=== PATIENT | female | born 2005 | race Caucasian/White ===

== ENCOUNTER 2024-04-27 08:05 | Outpatient (AMB) | payer OTHER, SELFPAY ==
--- NOTE | 2024-04-27 08:07 | A.OFFPC_ITS ---
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 Patient moved from [facility] recently where she lived for 3 years with her mother who works as a radiologist in [employer] and twin brother. Patient is concerned about her increased heart rate and low blood pressure on occasions getting lightheaded when standing up suddenly. Her mother has diagnosis of POTS disease and the patient like to be tested. She has been taking Lexapro for PMDD 2 weeks out of the month which has been helpful. 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 [employer] Surgical History [place] teeth extracted Family History Father POTS (postural orthostatic tachycardia syndrome) Sleep apnea Mother Skin cancer Social History Household Members Other:: lives with mother (radiologist in [employer], lived in [place] Housing: Other Patient Tobacco Use Status: Never used Tobacco e-Cigarette/Vaping Use: Never Used service: No Current occupational status: student Cognitive needs: No Hearing needs: No Vision needs: No Questionnaire PHQ-9 Over the last 2 weeks, how often have you been bothered by any of the following problems? 1. Little interest or pleasure in doing things: several days 2. Feeling down, depressed, or hopeless: several days 3. Trouble falling or staying asleep, or sleeping too much: several days 4. Feeling tired or having little energy: several days 5. Poor appetite or overeating: several days 6. Feeling bad about yourself - or that you are a failure or have let yourself or your family down: several days 7. Trouble concentrating on things, such as reading the newspaper or watching television: several days 8. Moving or speaking so slowly that other people could have noticed. Or the opposite - being so fidgety or restless that you have been moving around a lot more than usual: several days 9. Thoughts that you would be better off or of hurting yourself in some way: not at all Total score: 8 Depression Screening Interpretation: Negative Depression Screening Done: Yes 68241 - PHQ-9 Billing: Yes Source: Developed by Drs. Kodak Sherman, Melissa Kraus, Alejandro Crowley and colleagues, with an educational naren from [employer]. Thrive Questionnaire Date Thrive assessed: 04/27/24 I am a: Patient What is your living situation today?: I have a steady place to live Within the past 12 months, did the food you bought not last and you didn't have the money to get more?: Never true Within the past 12 months, did you worry whether your food would run out before you got money to buy more?: Never true Do you have trouble paying for medicines?: No Do you have trouble getting transportation to medical appointments?: Yes Do you have trouble paying your heating and electricity bill?: No Do you have trouble taking care of your child, family member or friend?: No Do you have trouble with day-to-day activities such as bathing, preparing meals, shopping, managing finances, etc.?: No Are you currently unemployed and looking for a job?: No Are you interested in more education?: No Please select the resources that you would like help with: None Currently or been in a relationship where the following occur: No concerns reported THRIVE Score: 1 AUDIT C Alcohol Use Questionnaire (AUDIT-C) 1. How often do you have a drink containing alcohol?: Never 3. How often do you have six or more drinks on one occasion?: Never Total Score: 0 JOSE-7 AMB Questionnaire JOSE-7 Feeling nervous, anxious, or on edge: 0 = Not at all Not being able to stop or control worryin = Not at all Worrying too much about different things: 0 = Not at all Trouble relaxin = Not at all Being so restless that it is hard to sit still: 0 = Not at all Becoming easily annoyed or irritable: 0 = Not at all Feeling afraid as if something awful might happen: 0 = Not at all Total JOSE-7 score (0-4 normal; 5-9 mild; 10-14 moderate; 15-21 severe): 0 Source: Developed by Drs. Kodak Sherman, Melissa Kraus, Alejandro Crowley and colleagues, with an educational naren from [employer]. Review of Systems Const All systems reviewed & are unremarkable except as noted in HPI and below Reports no additional complaints Eyes Reports no additional complaints ENT Reports no additional complaints Card Reports no additional complaints Resp Reports no additional complaints GI Reports no additional complaints Reports no additional complaints Physical exam (Primary Care) Vital Signs: Last Vital Signs Temp 98.4 F 04/27/24 08:09 Pulse 93 04/27/24 08:09 Resp 20 04/27/24 08:09 BP 108/70 04/27/24 08:09 Pulse Ox 98 04/27/24 08:09 Oxygen Delivery Method Room Air 04/27/24 08:09 BMI result Body Mass Index 19.7 Tobacco/Smoking Status: Tobacco use Status Tobacco use date assessed 04/27/24 04/27/24 08:20 Patient Tobacco Use Status Never used Tobacco 04/27/24 08:29 e-Cigarette/Vaping Use Never Used 04/27/24 08:29 PHQ-9: PHQ-9 Score PHQ-9: Total score 8 04/27/24 08:46 Depression Screening Interpretation: Negative Thrive Assessment: Date of Thrive Assessment Date Thrive assessed 04/27/24 04/27/24 08:10 Currently or been in a relationship where the following occur: No concerns reported Const General: no acute distress HENMT Head: Yes normal to inspection Ears: hearing grossly normal bilaterally General nose exam: Normal external nose present Face and sinus: Yes normal facial exam Mouth: Normal oral and palatal mucosa present Throat: Yes posterior oropharynx normal Eyes General: appearance normal, both eyes and all related structures Neck Neck: Yes no lymphadenopathy and Yes supple Resp Effort & Inspection: normal respiratory effort Auscultation: clear to auscultation bilaterally Cardio Rhythm: regular rhythm Heart sounds: S1 normal heart sound present and S2 normal heart sound present GI Inspection: Yes normal to inspection Palpation (GI): Soft to palpation Percussion: Yes normal to percussion Auscultation: normal bowel sounds Coding Level of Care Code New Pt Prev Care 18-39yr(79865 Diagnoses Annual physical exam Z00.00 PMDD (premenstrual dysphoric disorder) F32.81 Tachycardia R00.0 Additional Codes PHQ-9 - 59354 - PHQ-9 Billing: Yes ([id number]) Assessment & Plan Assessment & Plan (1) Annual physical exam: Code(s): Z00.00 - Encounter for general adult medical examination without abnormal findings Category: Medical Plan: Well-balanced diet regular physical activity discussed with the patient she will return for fasting blood work (2) PMDD (premenstrual dysphoric disorder): Code(s): F32.81 - Premenstrual dysphoric disorder Category: Medical Plan: Continue Lexapro (3) Tachycardia: Code(s): R00.0 - Tachycardia, unspecified Category: Medical Plan: Obtain A TILT-TABLE study to evaluate for POTS disease, patient was advised to increase fluid intake Orders: Orders Lipid Panel Today R00.0 - Tachycardia, unspecified, Z00.00 - Encounter for general adult medical examination without abnormal findings IRON PROFILE Today R00.0 - Tachycardia, unspecified, Z00.00 - Encounter for general adult medical examination without abnormal findings TSH reflex Free T4 Today R00.0 - Tachycardia, unspecified, Z00.00 - Encounter for general adult medical examination without abnormal findings UA w Microscopic Today R00.0 - Tachycardia, unspecified, Z00.00 - Encounter for general adult medical examination without abnormal findings ECG Tilt Table Test Today R00.0 - Tachycardia, unspecified, Z00.00 - Encounter for general adult medical examination without abnormal findings AMB EKG-In Office Today F32.81 - Premenstrual dysphoric disorder, R00.0 - Tachycardia, unspecified Comprehensive [place]. Panel Fast Today R00.0 - Tachycardia, unspecified, Z00.00 - Encounter for general adult medical examination without abnormal findings Complete Blood Count Auto Diff Today R00.0 - Tachycardia, unspecified, Z00.00 - Encounter for general adult medical examination without abnormal findings Medications: New escitalopram oxalate (Lexapro) 5 mg (1/2 x 10 mg) PO DAILY 90 tabs 0RF
[2024-04-27 08:09] VITALS: BP 108/70; PULSE 93; RESP 20; TEMP 36.9; O2SAT 98; BMI 19.7
== END 2024-04-27 12:33 | disposition home or self-care (01) ==
LOC: HO.HMCC 08:05
PROVIDERS: Visit Provider Internal Medicine
DX: Z00.00 Encounter for general adult medical examination without abnormal findings (principal); F32.81 Premenstrual dysphoric disorder; R00.0 Tachycardia, unspecified

== ENCOUNTER 2024-04-27 08:05 | Outpatient (REF) | payer OTHER, SELFPAY ==
--- OUTSIDE RECORDS SUMMARY | 2024-04-27 09:27 | XMS_ITS | Continuity of Care Document ---
Author Name [facility] Organization [facility] Care Team Providers Care Electrical Contacts Adjuster Name Role Phone [facility] Unavailable Unavailable Problems Combined list of problems from [facility] facilities. It does not include entries that were removed or entered in error. Problem Status Onset Date Problem Type Date of Resolution Comments Source Well adult Active 02/13/2024 Diagnosis [facility] Premenstrual dysphoric disorder Active 02/13/[address] [place] [address] Acne Active Condition [address] [place] [address] Ganglion cyst of right knee Active Condition [address] [place] [address] Premenstrual dysphoric disorder Active Condition [address] [place] [address] Sinus tachycardia Active Condition [address] [place] [address] Dizziness and giddiness Active Diagnosis [address] [place] [address] Medications Combined list of outpatient medications from [facility] facilities.Medications provided include 1) outpatient medications from the last 15 months, and 2) patient-reported medications. Medication Details Route Status Patient Instructions Prescription Expires Prescription Number Last Dispense Date Ordering Provider Order Date Order Qty Source benzoyl peroxide-cl indamycin 5%-1.2% topical gel APPLY A THIN AMOUNT TO ENTIRE FACE EVERY MORNING, # 45 g, 10 total refill(s ), Acute Discont inued 01/07/2023 3 2022 45.0 Ambulat ory Pharmac y cetirizine 10 mg oral tablet 1 tab(s), Oral, Daily, PRN allergy symptoms , # 90 tab(s), 3 total refill(s ), Maintena nce Oral (given by mouth) Ordered 2023 90.0 [facility] clindamycin phosphate-b enzoyl peroxide 1.2%-5% topical gel APPLY A THIN AMOUNT TO ENTIRE FACE EVERY MORNING, Topical, Daily, # 45 g, 10 total refill(s ), Maintena nce, Pharmacy : [facility] Topica l (on the skin) Ordered [address] [place] [address] emollients, topical cream APPLY TOPICALL Y FREQUENT LY NEEDED FOR DRY SKIN, # 453 g, 11 total refill(s ), Acute Complet ed 11/23/2022 2 2022 453.0 Ambulat ory Pharmac y ergocalcife rol 1.25 mg (50,000 intl units) oral capsule TAKE ONE CAPSULE BY MOUTH WEEKLY, # 12 EA, 3 total refill(s ), Acute Complet ed 11/24/2022 2 2022 12.0 Ambulat ory Pharmac y ferrous fumarate 324 mg (106 mg elemental iron) oral tablet 1 tab(s), Oral, Daily, # 90 tab(s), 0 total refill(s ), Maintena nce, Pharmacy : [facility] Oral (given by mouth) Complet ed 02/13/2024 [address] [place] [address] Lexapro 10 mg oral tablet 0.5 tab(s), Oral, Daily, # 90 tab(s), 3 total refill(s ), Maintena nce, Pharmacy : [facility] Oral (given by mouth) Ordered 4 [address] [place] [address] Lexapro 10 mg oral tablet 1 tab(s), Oral, Daily, # 30 tab(s), 0 total refill(s ), Maintena nce, Pharmacy : [facility] Oral (given by mouth) Discont inued 02/13/2024 [address] [place] [address] sertraline 50 mg oral tablet 1 tab(s), Oral, Daily, # 90 tab(s), 1 total refill(s ), Maintena nce, Pharmacy : [facility] Oral (given by mouth) Discont inued 08/11/2023 [address] [place] [address] sertraline 50 mg oral tablet 1 tab(s), Oral, Daily, # 90 tab(s), 0 total refill(s ), [facility], Pharmacy : [facility] Oral (given by mouth) Complet ed 02/13/2024[address] [place] [address] tretinoin 0.1% topical cream APPLY TO AFFECTED AREAS DIRECTED AT BEDTIME, # 90 g, 11 total refill(s ), Acute Discont inued 01/07/2023 3 2022 90.0 Ambulat ory Pharmac y tretinoin 0.1% topical cream APPLY TO AFFECTED AREAS DIRECTED AT BEDTIME, Topical, every day at bedtime, # 45 g, 5 total refill(s ), [facility], Pharmacy : [facility] Topica l (on the skin) Ordered 4 [address] [place] [address] Vitamin D3 25 mcg (1000 intl units) oral tablet 1 tab(s), Oral, Daily, # 90 tab(s), 3 total refill(s ), [facility], Pharmacy : [facility] Oral (given by mouth) Ordered 4 [address] [place] [address] Lizeth 3 mg-0.02 mg oral tablet 1 tab(s), Oral, Daily, # 84 tab(s), 0 total refill(s ), [facility], Pharmacy : [facility] Oral (given by mouth) Discont inued 09/07/2023 [address] [place] [address] Lizeth 3 mg-0.02 mg oral tablet 1 tab(s), Oral, Daily, # 84 tab(s), 3 total refill(s ), [facility], Pharmacy : [facility] Oral (given by mouth) Complet ed 02/13/2024 [address] [place] [address] Allergies, Adverse Reactions, Alerts Combined list of allergies from [facility] and [facility] facilities. It does not include entries that were removed or entered in error. Substance Category Reaction Severity Reaction type Status Date Reported Comments Source ibuprofen Drug allergy Edema, Rash Moderate Active 1 Ambulatory Pharmacy Immunizations Combined list of available immunizations from the [facility] facilities. Immunization Series Date Given Administered By Site Reaction Lot Number CVX Code Drug Form Grader Status Comments Source COVID-19 vaccine(Pascual vax 12y+) 2023 AKIKOSPOGGIO Shoul darryl, left (delt oid) [id number] [employer]. complet ed COVID-19 vaccine(S pikevax 12y+) 02/13/[address] [place] [address] meningococcal group B vaccine 2022 GABRIELLEFLEU RENTIN Shoul darryl, right (delt oid) [id number] GlaxoSmithKli tx complet ed meningoco ccal group B vaccine 01/24/[address] [place] [address] meningococcal B, OMV 2022 HERNANDO NOPF [id number] complet ed Result Comment: Route: Unknown Manufactu rer: OTH (SKB) [address] [place] [address] COVID-19 vaccine(Comir melania 12y+) 2022 JillianAPhill ips Shoul darryl, left (delt oid) [id number] [employer] complet ed COVID-19 vaccine(C omirnaty 12y+) 01/21/[address] [place] [address] influenza virus vaccine, inactivated 2022 JillianAPhill ips Shoul darryl, left (delt oid) [id number] 150 NEXAGE, A Versa complet ed influenza virus vaccine, inactivat ed 12/31/22 Given [facility] influenza, injectable, quadrivalent- pf 2022 HERNANDO CAMARILLO [id number] complet ed Result Comment: Route: Unknown Manufactu rer: OTH (SEQ) [facility], injectable, quadrivalent- pf 2021 zzLef t Arm [id number] 150 WhisherKli ne complet ed influenza , injectabl e, quadrival ent-pf 12/02/21 Given Ambulat ory Pharmac y COVID-19 vaccine(Pfize r Bival 12yr+) 2021 zzLef t Arm [id number] PFIZER complet ed COVID-19 vaccine(P fizer Bival 12yr+) 12/02/21 Given Ambulat ory Pharmac y COVID Vaccine Pfizer 2021 zzLef t Arm [id number] 208 PFIZER complet ed COVID Vaccine Pfizer 02/19/21 Given Ambulat ory Pharmac y influenza, injectable, quadrivalent [facility] [id number] 158 Seqirus complet ed influenza , injectabl e, quadrival ent 12/04/20 Given Ambulat ory Pharmac y meningococcal A,C,Y,W-135 (MCV4P) 2020 zzLef t Arm [id number] 114 sanofi pasteur complet ed meningoco ccal A,C,Y,W-1 35 (MCV4P) 08/19/20 Given Ambulat ory Pharmac y COVID Vaccine Pfizer 2020 zzLef t Arm [id number] 208 PFIZER complet ed COVID Vaccine Pfizer 07/24/20 Given Ambulat ory Pharmac y COVID Vaccine Pfizer 2020 zzLef t Arm [id number] 208 PFIZER complet ed COVID Vaccine Pfizer 07/03/20 Given Ambulat ory Pharmac y influenza, injectable, quadrivalent- pf 2019 zzLef t Arm [id number] 150 Seqirus complet ed influenza , injectabl e, quadrival ent-pf 12/04/19 Given Ambulat ory Pharmac y influenza, injectable, quadrivalent- pf 2018 zzLef t Arm [id number] 150 Seqirus complet ed influenza , injectabl e, quadrival ent-pf 12/26/18 Given Ambulat ory Pharmac y Slovak Encephalitis IM 2018 zzRig ht Arm [id number] 134 Valneva complet ed Slovak Encephali tis IM 11/07/18 Given Ambulat ory Pharmac y Slov[place] Encephalitis IM 2018 zzLef t Arm [id number] 134 Valneva complet ed [place] Encephali tis IM 08/24/18 Given Ambulat ory Pharmac y typhoid Vi capsular polysaccharid e vac 2018 zzLef t Arm [id number] 101 sanofi pasteur complet ed typhoid Vi capsular polysacch aride vac 08/24/18 Given Ambulat ory Pharmac y influenza, injectable, quadrivalent- pf 2017 zzLef t Arm [id number] 150 Seqirus complet ed influenza , injectabl e, quadrival ent-pf 12/27/17 Given Ambulat ory Pharmac y influenza, injectable, quadrivalent- pf 2016 zzLef t Thigh [id number] [facility] influenza , injectabl e, quadrival ent-pf 01/24/17 Given Ambulat ory Pharmac y Human Papillomaviru s 9-valent vaccine [facility] [id number] 165 Merck & Company Inc complet ed Human Papilloma virus 9-valent vaccine 07/29/16 Given Ambulat ory Pharmac y Human Papillomaviru s 9-valent vaccine 2015 zzRig ht Arm [id number] 165 Merck & Company Inc complet ed Human Papilloma virus 9-valent vaccine 11/21/15 Given Ambulat ory Pharmac y influenza, seasonal, injectable-pf 2015 zzRig ht Arm [id number] 140 Seqirus complet ed influenza , seasonal, injectabl e-pf 11/21/15 Given Ambulat ory Pharmac y tetanus, diphtheria, acellular pertu is 2015 zzRig ht Arm [id number] 115 GlaxoSmithKli ne complet ed tetanus, diphtheri a, acellular pertussis 09/19/15 Given Ambulat ory Pharmac y meningococcal A,C,Y,W-135 (MCV4P) 2015 zzLef t Arm [id number] 114 [employer] complet ed meningoco ccal A,C,Y,W-1 35 (MCV4P) 09/19/15 Given Ambulat ory Pharmac y Human Papillomaviru s 9-valent vaccine [facility] [id number] 165 Merck & Company Inc complet ed Human Papilloma virus 9-valent vaccine 09/19/15 Given Ambulat ory Pharmac y influenza, live, intranasal,qu adrivalent 2014 [id number] 149 Medimmune Inc comple t ed influenza , live, intranasa l,quadriv alent 12/27/14 Given Ambulat ory Pharmac y influenza virus vaccine, live 2010 [id number] 111 Medimmune Inc comple t ed influenza virus vaccine, live 10/30/10 Given Ambulat ory Pharmac y influenza virus vaccine, live 2009 [id number] 111 Med[employer] Inc comple t ed influenza virus vaccine, live 02/02/10 Given Ambulat ory Pharmac y influenza virus vaccine,split 2008 [facility] Arm [id number] 15 sanofi pasteur complet ed influenza virus vaccine,s plit 01/06/09 Given Ambulat ory Pharmac y [facility]P [facility] [id number] 20 GlaxoSmithKli ne complet ed DTaP 05/28/08 Given Ambulat ory Pharmac y measles/mumps /rubella virus vaccine 2008 [facility] [id number] 03 Merck & Company Inc complet ed measles/m umps/rube lla virus vaccine 05/28/08 Given Ambulat ory Pharmac y varicella virus vaccine 2008 [facility] [id number] 21 Merck & Company Inc complet ed varicella virus vaccine 05/28/08 Given Ambulat ory Pharmac y poliovirus vaccine, inactivated 2008 [facility] Thigh [id number] 10 sanofi pasteur complet ed polioviru s vaccine, inactivat ed 05/28/08 Given Ambulat ory Pharmac y influenza virus vaccine,split 2007 [facility] Thigh [id number] 15 sanofi pasteur complet ed influenza virus vaccine,s plit 01/29/08 Given Ambulat ory Pharmac y Hep A, pediatric, unspecified formul 2007 [facility] [id number] 31 GlaxoSmithKli ne complet ed Hep A, pediatric , unspecifi ed formul 06/12/07 Given Ambulat ory Pharmac y influenza virus vaccine,split 2006 zzLef t Arm [id number] 15 sanofi pasteur complet ed influenza virus vaccine,s plit 12/08/06 Given Ambulat ory Pharmac y Hep A, pediatric, unspecified formul 2006 zzLef t Arm [id number] 31 GlaxoSmithKli ne complet ed Hep A, pediatric , unspecifi ed formul 12/08/06 Given Ambulat ory Pharmac y influenza virus vaccine,split 2006 zzLef t Arm [id number] 15 sanofi pasteur complet ed influenza virus vaccine,s plit 03/28/06 Given Ambulat ory Pharmac y pneumococcal 7-valent vaccine 2005 zzLef t Thigh [id number] 100 Me[employer] / [employer] complet ed pneumococ laverne 7-valent vaccine 09/03/05 Given Ambulat ory Pharmac y DTaP 2005 zzLef t Thigh [id number] 20 GlaxoSmithKli ne complet ed DTaP 09/03/05 Given Ambulat ory Pharmac y measles/mumps /rubella virus vaccine 2005 zRig Thigh [id number] 03 Merck & Company Inc complet ed measles/m umps/rube lla virus vaccine 09/03/05 Given Ambulat ory Pharmac y haemophilus b conj (PRP-OMP) vaccine 2005 zzRig ht Thigh [id number] 49 Merck & Company Inc complet ed haemophil us b conj (PRP-OMP) vaccine 06/01/05 Given Ambulat ory Pharmac y varicella virus vaccine 2005 zzLef t Arm [id number] 21 Merck & Company Inc complet ed varicella virus vaccine 06/01/05 Given Ambulat ory Pharmac y influenza virus vaccine, whole virus 2004 [id number] 16 sanofi pasteur complet ed influenza virus vaccine, whole virus 01/28/05 Given Ambulat ory Pharmac y influenza virus vaccine, whole virus 2004 [id number] 16 sanofi pasteur complet ed influenza virus vaccine, whole virus 04 Given Ambulat ory Pharmac y DTaP-hepatiti s B and poliovirus vaccine 2004 [facility] [id number] 110 GlaxoSmithKli ne complet ed DTaP-hepa titis B and polioviru s vaccine 04 Given Ambulat ory Pharmac y pneumococcal 7-valent vaccine 2004 [facility] Thigh [id number] 100 [place] [facility] complet ed pneumococ laverne 7-valent vaccine 04 Given Ambulat ory Pharmac y haemophilus b conj (PRP-OMP) vaccine [facility] [id number] 49 [employer] & [employer] Inc complet ed haemophil us b conj (PRP-OMP) vaccine 04 Given Ambulat ory Pharmac y DTaP-hepatiti s B and poliovirus vaccine [facility] [id number] 110 GlaxoSmithKli ne complet ed DTaP-hepa titis B and polioviru s vaccine 04 Given Ambulat ory Pharmac y pneumococcal 7-valent vaccine [facility] [id number] 100 [place] [facility] complet ed pneumococ laverne 7-valent vaccine 04 Given Ambulat ory Pharmac y DTaP-hepatiti s B and poliovirus vaccine 2004 [facility] [id number] 110 GlaxoSmithKli ne complet ed DTaP-hepa titis B and polioviru s vaccine 04 Given Ambulat ory Pharmac y haemophilus b conj (PRP-OMP) vaccine [facility] Thigh [id number] 49 Mer[employer] Inc complet ed haemophil us b conj (PRP-OMP) vaccine 04 Given Ambulat ory Pharmac y pneumococcal 7-valent vaccine [facility] [id number] 100 [facility] complet ed pneumococ laverne 7-valent vaccine 04 Given Ambulat ory Pharmac y Results Combined list of recent chemistry, hematology and other laboratory results from Department of Defense and Veterans Affairs, ranging from 15 months to all on record, depending upon the facility. Order Name Results Value Reference Range Date Interpretation Specimen Comments Source Chemistr y TSH 2.07 uIU/mL 0.36 - 3.72 09/22 N [facility] Chemistr y Hemoglobin A1c 4.7 % 09/22 N Interpretiv e Data: ADA Classificat ion and Diagnosis of Diabetes Non-diabeti c < 5.7% Pre-Diabeti c 5.7 - 6.4% Diabetics > 6.5% Testing performed at [facility] ([facility]. Hemoglobin A1c criteria for diagnosing diabetes have not been established for patients who are <18 years of age. Hemoglobin A1c should be interpreted with caution in patients with anemia, hemoglobino pathies, or renal failure. [address] [place] [address] Chemistr y Folate Lvl 13.2 mg/mL 5.9 - 22.3 09/[address] [place] [address] Chemistr y Vitamin B12 199 pg/mL 145 - 670 09/[address] [place] [address] Hematolo gy Baso Absolute 0.0 x10^3/mc L 0.0 - 0.1103 09/[address] [place] [address] Hematolo gy Eos Absolute 0.6 x10^3/mc L 0.0 - 0.6103 09/[address] [place] [address] Hematolo gy Monocyte % Auto 8.2 % 09/[address] [place] [address] Hematolo gy Neutrophil % Auto 44.7 % 09/[address] [place] [address] Hematolo gy Lymphocyte % Auto 35.2 % 09/[address] [place] [address] Hematolo gy [place] Absolute 0.4 x10^3/mc L 0.2 - 0.8103 09/[address] [place] [address] Hematolo gy Neutro Absolute 2.3 x10^3/mc L 1.8 - 8.0103 09/[address] [place] [address] Hematolo gy Lymph Absolute 1.8 x10^3/mc L 1.2 - 5.2103 09/[address] [place] [address] Hematolo gy Eosinophil % Auto 11.1 % 09/[address] [place] [address] Hematolo gy Basophil % Auto 0.8 % 09/[address] [place] [address] Chemistr y eGFR CKD EPI 128 mL/min/1 .73m^2 09/22 Interpretiv e Data: Estimated Glomerular Filtration Rate (eGFR) calculated using the 2020 Chronic Kidney Disease-Epi demiology (CKD-EPI) Collaborati on creatinine equation; units of measure are mL/min/1.73 m2. Results are only valid for adults (e18 years) whose serum creatinine is in steady state.? eGFR calculation s are not valid for patients with acute kidney injury and for patients on dialysis. ?Creatinine -based estimates of kidney function may also be inaccurate in patients with reduced creatinine generation due to decreased muscle mass (e.g., malnutritio n, severe hypoalbumin emia, sarcopenia, chronic neuromuscul ar disease, amputations , severe heart failure or liver disease) and in patients with increased creatinine generation due to increased muscle mass (e.g., muscle builders, anabolic steroids) or increased dietary intake. As drug clearance is proportiona l to total GFR and not GFR indexed to body surface area (BSA), in individuals with a BSA substantial ly different than 1.73 m2, drug dosing should be based the reported eGFRvalue de-indexed from BSA by multiplying by the individual s BSA and dividing by 1.73. CKD is diagnosed based on abnormaliti es of kidney structure or function, present for >3 months, with implication s for health and disease. CKD is classified and staged based on cause, eGFR and albuminuria (quantified as urine albumin to creatinine ratio). An eGFR >60 mL/min/1.73 m2 in the absence of increased urine albumin excretion or structural abnormaliti es does not represent CKD.eGFR (mL/min/1.7 3 m2) CKD stage Interpretat ion e90 G1 Normal 60-89 G2 Mild decrease 45-59 G3A Mild to moderate decrease 30-44 G3B Moderate to severe decrease 15-29 G4 Severe decrease <15 G5 Kidney failure [address] [place] [address] Chemistr y Potassium Lvl 4.8 mmol/L 3.6 - 5.1 09/[address] [place] [address] Chemistr y Chloride 106 mmol/L 101 - 111 09/[address] [place] [address] Chemistr y CO2 29 mmol/L 22 - 32 09/[address] [place] [address] Chemistr y Creatinine Level 0.7 mg/dL 0.6 - 1.5 09/[address] [place] [address] Chemistr y BUN 9 mg/dL 8 - 20 09/[address] [place] [address] Chemistr y Sodium 140 mmol/L 135 - 145 09/[address] [place] [address] Chemistr y BUN/Creat Ratio 13 09/[address] [place] [address] Chemistr y ALT 16.3 U/L 10.9 - 55.8 09/[address] [place] [address] Chemistr y AST 20.5 U/L 14.8 - 44.7 09/[address] [place] [address] Chemistr y Bilirubin Total 0.3 mg/dL 0.3 - 1.2 09/[address] [place] [address] Chemistr y Calcium 10.1 mg/dL 8.9 - 10.3 09/[address] [place] [address] Chemistr y Albumin 4.3 g/dL 3.7 - 5.0 09/[address] [place] [address] Chemistr y Protein Total 7.5 g/dL 6.4 - 8.3 09/[address] [place] [address] Chemistr y A/G Ratio 1.3 09/[address] [place] [address] Chemistr y Alk Phos 44 U/L 47 - 157 09/[address] [place] [address] Chemistr y Glucose Lvl 89 mg/dL 74 - 118 09/[address] [place] [address] Hematolo gy Hematocrit 40.3 % 34.0 - 47.0 09/[address] [place] [address] Hematolo gy MCV 95.5 fL 80.0 - 95.0 08/09 /[address] [place] [address] Hematolo gy RBC 4.22 x10^6/mc L 3.70 - 5.72358 09/[address] [place] [address] Hematolo gy Hemoglobin 13.4 g/dL 11.0 - 16.0 09/[address] [place] [address] Hematolo gy WBC 5.1 x10^3/mc L 3.5 - 10.5103 09/[address] [place] [address] Hematolo gy Platelets 239 x10^3/mc L 151 - 536010 09/[address] [place] [address] Hematolo gy MPV 10.5 fL 7.5 - 12.3 09/[address] [place] [address] Hematolo gy MCHC 33.3 g/dL 31.0 - 35.0 09/[address] [place] [address] Hematolo gy RDW CV 11.8 % 12.6 - 15.9 09/[address] [place] [address] Hematolo gy MCH 31.8 pg 26.0 - 33.0 09/[address] [place] [address] Chemistr y Ferritin Lvl 23.2 ng/mL 24.4 - 281.8 09/[address] [place] [address] Chemistr y TIBC 377 ug/dL 250 - 450 09/[address] [place] [address] Chemistr y UIBC, 283 ug/dL 155 - 355 09/[address] [place] [address] Chemistr y Iron 94.0 ug/dL 17.3 - 170.0 09/[address] [place] [address] Chemistr y Transferri n 277 mg/dL 176 - 350 09/[address] [place] [address] Chemistr y Iron % Sat 25 % 15 - 50 09/[address] [place] [address] Chemistr y TSH 1.71 uIU/mL 0.36 - 3.72 08/[address] [place] [address] Chemistr y Vitamin D 25 OH 31 ng/mL 30 - 100 07/12 N Interpretiv e Data: Interpretat ion: <20 ng/mL Deficient 20-30 ng/mL Insufficien cy 30-100 ng/mL Sufficiency >100 ng/mL Toxicity [address] [place] [address] Chemistr y UIBC, 224 ug/dL 155 - 355 07/[address] [place] [address] Chemistr y TIBC 329 ug/dL 250 - 450 07/[address] [place] [address] Chemistr y Iron % Sat 32 % 15 - 50 07/[address] [place] [address] Chemistr y Iron 105.0 ug/dL 17.3 - 170.0 07/[address] [place] [address] Chemistr y Ferritin Lvl 11.0 ng/mL 24.4 - 281.8 07/[address] [place] [address] Chemistr y Transferri n 228 mg/dL 176 - 350 07/[address] [place] [address] Hematolo gy Eosinophil % Auto 1.8 % 01/[address] [place] [address] Hematolo gy Monocyte % Auto 8.7 % 01/[address] [place] [address] Hematolo gy Lymphocyte % Auto 38.3 % 01/[address] [place] [address] Hematolo gy Neutrophil % Auto 50.9 % 01/[address] [place] [address] Hematolo gy Basophil % Auto 0.3 % 01/[address] [place] [address] Hematolo gy Baso Absolute 0.0 x10^3/mc L 0.0 - 0.1103 01/[address] [place] [address] Hematolo gy Eos Absolute 0.1 x10^3/mc L 0.0 - 0.6103 01/[address] [place] [address] Hematolo gy [place] Absolute 0.5 x10^3/mc L 0.2 - 0.8103 01/[address] [place] [address] Hematolo gy Lymph Absolute 2.4 x10^3/mc L 1.2 - 5.2103 01/[address] [place] [address] Hematolo gy Neutro Absolute 3.1 x10^3/mc L 1.8 - 8.0103 01/[address] [place] [address] Immunolo gy/Serol ogy QFT Incubation LC Incubati on performe d. 01/10 Result Comment: Performed At: [address] [place] [address] [id number] Fede Wang MD Ph:[phone] [address] [place] [address] Immunolo gy/Serol ogy QFT-TB Gold Plus LC Negative 01/10 Result Comment: No response to M tuberculosi s antigens detected. Infection with M tuberculosi s is unlikely, but high risk individuals should be considered for additional testing (ATS/IDSA/C DC Clinical Practice Guidelines, 2017). The reference range is an Antigen minus Nil result of <0.35 IU/mL. Chemilumine scence immunoassay methodology Performed At: [address] [place] [address] [id number] Fede Wang MD Ph:[phone] [address] [place] [address] Hematolo gy Sickle Cell Screen Negative 4 ( 3 3:05 PM) 01/10 N Interpretiv e Data: Elevated levels of hemoglobin F can cause false negative results. Do not use this test for infants under 6 months of age. This is a screening test. Samples with positive screening results will automatical ly be sent to a reference laboratory for confirmatio n. [address] [place] [address] Immunolo gy/Serol ogy Hep C Ab Negative 2 ( 3 3:05 PM) 01/10 N Interpretiv e Data: NEGATIVE - Antibodies to HCV were not detected; does not exclude the possibility of exposure to HCV. PRESUMPTIVE POSITIVE - Presumptive evidence of antibodies to HCV. Follow CDC recommendat ions for supplementa l testing. Refer to updated guidance Testing HCV Infection: An Update of Guidance for Clinicians and Laboratoria ns for additional information and recommended HCV testing algorithm (Centers for Disease Control and Prevention, MMWR Early Release / Vol. 62 / June 20, 2012). Notifiable result/cond ition for Local/State PH department, notify your local public health immediately for proper notificatio n. Testing performed by mayo jose ce. [id number] FSAM EPILAB Hematolo gy MPV 10.0 fL 7.5 - 12.3 01/[address] [place] [address] Hematolo gy WBC 6.2 x10^3/mc L 3.5 - 10.5103 01/[address] [place] [address] Hematolo gy RBC 4.25 x10^6/mc L 3.70 - 5.94476 01/[address] Hematolo gy Hematocrit 39.4 % 34.0 - 47.0 01/[address] [place] [address] Hematolo gy Hemoglobin 13.4 g/dL 11.0 - 16.0 01/[address] Hematolo gy RDW CV 11.7 % 12.6 - 15.9 01/[address] [place] [address] Hematolo gy MCHC 34.0 g/dL 31.0 - 35.0 01/[address] [place] [address] Hematolo gy MCH 31.5 pg 26.0 - 33.0 01/[address] [place] [address] Hematolo gy MCV 92.7 fL 80.0 - 95.0 01/[address] Hematolo gy Platelets 237 x10^3/mc L 151 - [id number] 01/[address] Immunolo gy/Serol ogy QFT Nil Value LC 0.02 IU/mL 01/10 [facility] Standard Immunolo gy/Serol ogy QFT TB2 Ag Value LC 0.04 IU/mL 01/10 [facility] Standard Immunolo gy/Serol ogy QFT Mitogen Value LC >10.00 IU/mL 01/10 Result Comment: Performed At: [address] [id number] Fede Wang MD Ph:[phone] [facility] Standard Immunolo gy/Serol ogy QFT TB1 Ag Value LC 0.02 IU/mL 01/10 [facility] Standard Immunolo gy/Serol ogy QFT Criteria LC COMMENT 01/10 Result Comment: QuantiFERON -TB Gold Plus is a qualitative indirect test for M tuberculosi s infection (including disease) and is intended for use in conjunction with risk assessment, radiography , and other medical and diagnostic evaluations . The QuantiFERON -TB Gold Plus result is determined by subtracting the Nil value from either TB antigen (Ag) value. The Mitogen tube serves as a control for the test. [facility] Standard Vital Signs Combined list of inpatient and outpatient Vital Signs from Department of Defense and Veterans Affairs, ranging from 12 months to all on record, depending upon the facility. Vital Sign Value Date Comments Source Peripheral Pulse Rate 48 bpm 02/23/2023 12:57:[address] [place] [address] Mean Arterial Pressure, Calc 90 mm[Hg] 02/23/2023 12:57:[address] [place] [address] Respiratory Rate 16 br/min 02/23/2023 12:57:[address] [place] [address] BP Site Left arm 02/23/2023 12:57:[address] [place] [address] Temperature Oral 36.6 Lorraine 02/23/2023 12:57:[address] [place] [address] Blood Pressure Manual Automatic 02/23/2023 12:57:[address] [place] [address] Systolic Blood Pressure 112 mm[Hg] 02/23/19 24 12:57:[address] [place] [address] Diastolic Blood Pressure 79 mm[Hg] 024 12:57:[address] [place] [address] Mean Arterial Pressure, Calc 85 mm[Hg] 07/13/2023 12:02:[address] [place] [address] Systolic Blood Pressure 108 mm[Hg] 07/13/19 12:02:[address] [place] [address] Diastolic Blood Pressure 74 mm[Hg] 024 12:02:[address] [place] [address] Temperature Oral 37.1 Lorraine 07/13/2023 12:02:[address] [place] [address] BP Site Left arm 07/13/2023 12:02:[address] [place] [address] Blood Pressure Manual Automatic 07/13/2023 12:02:[address] [place] [address] Peripheral Pulse Rate 80 bpm 07/13/2023 12:02:[address] [place] [address] Respiratory Rate 16 br/min 07/13/2023 12:02:[address] [place] [address] Peripheral Pulse Rate 73 bpm 02/13/2024 09:29:[address] [place] [address] Respiratory Rate 18 br/min 02/13/2024 09:29:[address] [place] [address] Mean Arterial Pressure, Calc 81 mm[Hg] 02/13/2024 09:29:[address] [place] [address] Temperature Oral 36.8 Lorraine 02/13/2024 09:29:[address] [place] [address] BP Site Left arm 02/13/2024 09:29:[address] [place] [address] Blood Pressure Manual Automatic 02/13/2024 09:29:[address] [place] [address] Systolic Blood Pressure 104 mm[Hg] 02/13/20 09:29:[address] [place] [address] Diastolic Blood Pressure 69 mm[Hg] 024 09:29:[address] [place] [address] Systolic Blood Pressure Standing 108 mm[Hg] 09/23/2023 10:47:[address] [place] [address] Diastolic Blood Pressure Standing 77 mm[Hg] 09/23/2023 10:47:[address] [place] [address] Systolic Blood Pressure Supine 111 mm[Hg] 09/23/2023 10:47:[address] [place] [address] Diastolic Blood Pressure Supine 71 mm[Hg] 09/23/2023 10:47:[address] [place] [address] BP Site Left arm 01/07/2023 12:30:[address] [place] [address] Blood Pressure Manual Automatic 01/07/2023 12:30:[address] [place] [address] Mean Arterial Pressure, Calc 83 mm[Hg] 01/07/2023 12:30:[address] [place] [address] Peripheral Pulse Rate 65 bpm 01/07/2023 12:30:[address] [place] [address] Respiratory Rate 16 br/min 01/07/2023 12:30:[address] [place] [address] Temperature Oral 37 Lorraine 01/07/2023 12:30:[address] [place] [address] Systolic Blood Pressure 107 mm[Hg] 01/08/20 12:30:[address] [place] [address] Diastolic Blood Pressure 71 mm[Hg] 023 12:30:[address] [place] [address] Systolic Blood Pressure 101 mm[Hg] 08/11/19 24 08:57:[address] [place] [address] Diastolic Blood Pressure 71 mm[Hg] 024 08:57:[address] [place] [address] Respiratory Rate 13 br/min 08/11/2023 08:57:[address] [place] [address] Mean Arterial Pressure, Calc 81 mm[Hg] 08/11/2023 08:57:[address] [place] [address] Peripheral Pulse Rate 93 bpm 08/11/2023 08:57:[address] [place] [address] Temperature Oral 36.8 Lorraine 08/11/2023 08:57:[address] [place] [address] BP Site Left arm 08/11/2023 08:57:[address] [place] [address] Blood Pressure Manual Automatic 08/11/2023 08:57:[address] [place] [address] Mean Arterial Pressure, Calc 74 mm[Hg] 09/23/2023 06:28:[address] [place] [address] Systolic Blood Pressure 97 mm[Hg] 09/23/19 24 06:28:[address] [place] [address] Diastolic Blood Pressure 63 mm[Hg] 024 06:28:[address] [place] [address] Peripheral Pulse Rate 92 bpm 09/23/2023 06:28:[address] [place] [address] Respiratory Rate 17 br/min 09/23/2023 06:28:[address] [place] [address] BP Site Left arm 09/23/2023 06:28:[address] [place] [address] Temperature Oral 36.8 Lorraine 09/23/2023 06:28:[address] [place] [address] Blood Pressure Manual Automatic 09/23/2023 06:28:[address] [place] [address] Encounters Combined list of: 1) Encounters from Department of Veterans Affairs facilities going backup to the last 18 months, not all VA inpatient encounters are included; 2) Encounters from the Department of Defense facilities going backup to 280 months. Location Location Details Encounter Type Encounter Number Reason For Visit Attending Provider ADM Date DC Date Status Disposition Source [address] [place] [address] Between Visit [id number] 09/19 Discharge Disposition: Home or Self Care [address] [place] [address] Clinic [id number] Dizzine ss and giddine ss AVANI FINNEY 09/22 Discharge Disposition: Home or Self Care [address] [place] [address] Outpatient [id number] AVANI FINNEY 09/22 Discharge Disposition: Home or Self Care [address] [facility] [id number] Premens trual dysphor ic disorde r,Encou nter for general adult medical examina tion without abnorma l finding s VIVIENNE WILKINS 02/12 Discharge Disposition: Home or Self Care [address] [place] [address] Clinic [id number] EBONI FRANCES 02/12 Discharge Disposition: Home or Self Care [address] [place] [address] Procedures Combined list of: 1) Procedures from [facility] facilities going back up to thelast 18 months, not all VA non-surgical procedures are included; 2) All procedures from the Department [facility] facilities. Procedure Procedure Type Code Date Perfomer Comments [facility] [place] tooth Structure of wisdom tooth (body structure) 10561523 [address] [place] [address] [place] hemangioma of skin [place] nevus of skin (disorder) 10709945 3 Right side of face [address] [place] [address] Social History Combined list of available smoking, tobacco, and other social history from Department [facility] and [facility] facilities. Social History Type Response Date Comment Romelia e Sex Representation Female 05/27/2022 Unknow n Organization Tobacco Never-cigarette user Cigarette use:. Never-other tobacco user (not cigarettes) Other Tobacco use:. Ambulatory Pharmacy Sexual Orientation Ambula tory Pharmacy Gender identity Ambulator y Pharmacy Assessment and Plan Combined list of future care activities from Department [facility] and [facility] facilities (e.g., assessment and plan notes, appointments, orders, and referrals). Additional future care activities may be listed in the Plan of Care section. Result Assessment and Plan Date Source Assessment and Plan Extracted from:Title : [facility] pmdd, wellness Author: VIVIENNE NGUYỄN NP Date: 02/13/24 1.?Well adult ?No acute complaints other than pmdd?worse of late.? 2.?Premenstrual dysphoric disorder ?Requests refill of lexapro,?also disability sheet due to the fact she finds it debilitating when she has a flare up which might impact timeliness of assignments, participation?or attendance.? Signed, and provided to her. Meds are refilled.?? Orders: escitalopram(Lexapro 10 mg oral tablet), 0.5 tab(s), Oral, Daily, # 90 tab(s), 3 total refill(s), Maintenance, 0.5 tab(s) Oral Daily, Pharmacy: [facility] [Federal Rx: #45 last filled 02/13/24] cholecalciferol(Vitamin D3 25 mcg (1000 intl units) oral tablet), 1 tab(s), Oral, Daily, # 90 tab(s), 3 total refill(s), Maintenance, 1 tab(s) Oral Daily, Pharmacy: [facility] [Federal Rx: #90 last filled 02/13/24] MARIO Lopez, [facility] Family Health Nurse Practitioner [facility] ? ? I?have personally reviewed labs and xrays pertinent to encounter ? Diagnosis, Medication(s)/Treatment(s), Alternatives, Potential Side Effects discussed with Patient who indicated understanding with shared decision making. - Comments: Resources to review written and verbal instruction was discussed and provided at the time patient was released from the clinic. Patient/family member stated understanding of instruction. ? ? Discussed with patient that should symptoms worsen or change in concerning way patient should follow-up as soon as possible or seek emergent care.??Patient can review lab work on [facility] portal.??Patient is aware that I will only call with critical labs and it is patient?s responsibility to follow up on lab work or radiology done today at next appointment. Patient can call and set up appointment or telephone consult to discuss concerning lab work. Patient also aware the summary/note of this encounter and medication list with instructions is available on the [employer] portal.? ? Date of Service was:?02/13/24 10:08:02?Date service was documented:?02/13/2024 Extracted from:Title: [facility] RX REFILL Author: AVANI MOE NP Date: 09/23/23 1.?Premenstrual dysphoric disorder Requesting Rx refill on control, informed pt she has 3 remaining refills. Requesting Iron studies ? Mother at bedside, very assertive of patients complaints, answering for patient. Mother of patient informed staff prior to completing orthostatic VS?how they need to be completed.? ? ? Ordered: CV Electrocardiogram Anemia Profile CBC w/ Diff Comprehensive Metabolic Panel Hemoglobin A1c Thyroid Stimulating Hormone with reflex Free T4 Vitamin B12 and Folate Panel ? Orders: CV Holter Monitor *Differential Automated *Glomerular Filtration Rate, Estimated Medication Reconciliation was completed. ? A total of 15 minutes spent on day of encounter reviewing medical history/labs/radiology studies, providing/coordinating?care and documenting clinical information.? Avani Moe, MARIO?CPT Family Nurse Practitioner [facility] ? ? I have personally reviewed labs and imaging pertinent to encounter ? Diagnosis, Medication(s)/Treatment(s), Alternatives, Potential Side Effects discussed with Patient who indicated understanding. - Comments: Written and verbal instruction was discussed and provided at the time patient was released from the clinic. Patient/family member stated understanding of instruction ? Discussed with patient that should symptoms worsen or change in concerning way patient should follow-up as soon as possible or seek emergent care.??Patient can review lab work on [facility] portal.??Patient is aware that I will only call with critical labs and it is patient?s responsibility to follow up on lab work or radiology done today at next appointment. Patient can call and set up appointment or telephone consult to discuss concerning lab work. ? Patient was an active participant in their care and participated in shared decision making. Patient?was instructed to go on [facility] patient portal to view today s encounter for plan of care.? ? Date of Service was:? ? ?09/23/23 08:07:56?Date service was documented:?09/23/2023 ? Extracted from:Title: [facility] PMDD Author: YUDY LOMAS MD Date: 08/11/23 1.?Premenstrual dysphoric disorder Recommend she continue with zoloft 100mg for a few weeks to see if helps. I informed pt that I am PCSing so will not be able to see her again. Mom requesting a different SSRI to try if zoloft not working, prior to going back to school. Although this is not my normal practice, I agreed to predating a script for lexapro 10#30 for 08/28 for them to try if they are still unsatisfied with the response she gets with zoloft. I will be available for another week after that should any questions arise. We discussed the transition of zoloft 100mg to lexapro 10mg. She will pursue counseling on line or at school. Mom requesting TSH Ordered: sertraline(sertraline 50 mg oral tablet), 1 tab(s), Oral, Daily, # 90 tab(s), 0 total refill(s), Maintenance, 1 tab(s) Oral Daily, Pharmacy: [facility] [Not filled] Thyroid Stimulating Hormone ? 2.?Tachycardia Mom with POTS and asking about Cardiology evaluation . Advised as Dr Petersen is leaving , Cardiology is understaffed so pt and mom agreed they will pursue this in the [place]. Patient had a complete work up in ?[place] which was all negative and expensive. ? 3.?Acne Pretty well controlled with retin a and benzoclin combo. Recently added Lizeth and recommend giving that time to work prior to initiating any changes ? Orders: escitalopram(Lexapro 10 mg oral tablet), 1 tab(s), Oral, Daily, # 30 tab(s), 0 total refill(s), Maintenance, 1 tab(s) Oral Daily, Pharmacy: [facility] [Not filled] Yudy Lomas MD Family Medicine Clinic [facility] ? I have personally reviewed labs and xrays pertinent to encounter ? Diagnosis, Medication(s)/Treatment(s), Alternatives, Potential Side Effects discussed with Patient who indicated understanding. - Comments: Written and verbal instruction was discussed and provided at the time patient was released from the clinic. Patient/family member stated understanding of instruction ? ? Discussed with patient that should symptoms worsen or change in concerning way patient should follow-up as soon as possible or seek emergent care.? Patient can review lab work on [facility] portal.? ?Patient is aware that I will only call with critical labs and it is patient's responsibility to follow up on lab work or radiology done today at next appointment. Patient can call and set up appointment or telephone consult to discuss concerning lab work. ? Date of Service was:?08/11/23 10:39:06 ? Date service was documented:?08/11/2023 ? Extracted from:Title: [facility] PMDD Author: YUDY LOMAS MD Date: 07/13/23 1.?Premenstrual dysphoric disorder patient and mom would llike to try lizeth while she is home for the summer . Discussed the risks, benefits and side effects of medication . Has been using 25 vs 50mg of zoloft and recommended trial of continuous therapy rather than cyclic treatment. They would like to try one medication at a time and favor the lizeth over the zoloft for the summer Orders: drospirenone-ethinyl estradiol(Lizeth 3 mg-0.02 mg oral tablet), 1 tab(s), Oral, Daily, # 84 tab(s), 0 total refill(s), Maintenance, 1 tab(s) Oral Daily, Pharmacy: [facility] [Not filled] Anemia Profile Vitamin D 25 Hydroxy Level Yudy Lomas MD Family Medicine Clinic [facility] ? I have personally reviewed labs and xrays pertinent to encounter ? Diagnosis, Medication(s)/Treatment(s), Alternatives, Potential Side Effects discussed with Patient who indicated understanding. - Comments: Written and verbal instruction was discussed and provided at the time patient was released from the clinic. Patient/family member stated understanding of instruction ? ? Discussed with patient that should symptoms worsen or change in concerning way patient should follow-up as soon as possible or seek emergent care.? Patient can review lab work on [facility] portal.? ?Patient is aware that I will only call with critical labs and it is patient's responsibility to follow up on lab work or radiology done today at next appointment. Patient can call and set up appointment or telephone consult to discuss concerning lab work. ? Date of Service was:?07/13/23 13:21:06 ? Date service was documented:?07/13/2023 ? Extracted from:Title: [id number] Author: MERVIN HOANG NP Date: 02/23/23 1.?Premenstrual dysphoric disorder Will start SSRI, Discussed with pt. that?SSRI, which can be given continuously, during the luteal phase only, or as a symptom-onset regimen.? Will start with zoloft Pt. to do lifestyle modifications with exercise and stress reduction follow up in 2-3 months to evaluate effectiveness of medication ? Ordered: sertraline(sertraline 50 mg oral tablet), 1 tab(s), Oral, Daily, # 90 tab(s), 1 total refill(s), Maintenance, 1 tab(s) Oral Daily, Pharmacy: [facility] [Federal Rx: #90 last filled 02/23/23] Clinic Follow Up - Primary Care ? Mervin Hoang DNP, DIRECTOR BLOOD BANK- Family Medicine Clinic [facility] ? ? ? A total of 20 minutes? spent on day of encounter reviewing medical history/labs/studies, providing/coordinating care and documenting clinical information ? Medication reconciliation completed Advance directives discussed reviewed BMI ? ? Diagnosis, Medication(s)/Treatment(s), Alternatives, Potential Side Effects discussed with Patient who indicated understanding. - Comments: Written and verbal instruction was discussed and provided at the time patient was released from the clinic. Patient/family member stated understanding of instruction ? ? Discussed with patient that should symptoms worsen or change in concerning way patient should follow-up as soon as possible or ? call nurse advice line or?seek emergent care.? Extracted from:Title: [facility], [facility], [facility], College exam-initial visit Author: SHEY HOUSER MD Date: 01/07/23 1.?Well female adult ?-Wellness issues reviewed; may register prn at [facility] or [facility]. Screened record to ensure immunizations are up to date.?? Ordered: CBC w/ Diff Hepatitis C Antibody QuantiFERON-TB Gold Plus [id number] Sickle Cell Screen ? 2.?Acne stable on Rx Ordered: clindamycin-benzoyl peroxide topical(clindamycin phosphate-benzoyl peroxide 1.2%-5% topical gel), APPLY A THIN AMOUNT TO ENTIRE FACE EVERY MORNING, Topical, Daily, # 45 g, 10 total refill(s), Maintenance, APPLY A THIN AMOUNT TO ENTIRE FACE EVERY MORNING Topical Daily, Pharmacy: [facility] [Not filled] ? 3.?Premenstrual dysphoric disorder Discussed; she feels in better control now and declines tx for now ? Orders: tretinoin topical(tretinoin 0.1% topical cream), APPLY TO AFFECTED AREAS DIRECTED AT BEDTIME, Topical, every day at bedtime, # 45 g, 5 total refill(s), Maintenance, APPLY TO AFFECTED AREAS DIRECTED AT BEDTIME Topical every day at bedtime, Pharmacy: [facility] [Not filled] Regarding any tests performed (labs, xrays, etc), the patient is instructed to contact us if they have not heard from us within?2 weeks of completion. ? Shey Houser MD Family Practice Clinic [facility] ? ? ? Extracted from:Title: [facility] Therapist OP Initial Visit Note Author: JAIME CASTILLO, [employer] Date: 11/18/22 Pt does not fit criteria for a diagnosis at this time. No future appointments where scheduled as pt does not meet criteria for a diagnosis at this time or continued care. Good None given due to no continued care 04/27/[address] [place] [address] Functional Status Combined list of recent functional and cognitive assessments recorded at Department of Defense and Veterans Affairs (VA).VA Functional [place] Measurement (FIM) Scale: 1 = Total Assistance (Subject = 0% +), 2 = Maximal Assistance (Subject = 25% +), 3 = Moderate Assistance (Subject = 50% +), 4 = Minimal Assistance (Subject = 75% +), 5 = Supervision, 6 = Modified [place] (Device), 7 = Complete [place] (Timely, Safely). Assessment Date/Time Source Assessment Type Assessment Skill Assessment Score Assessment Details No data available for this section
[2024-04-27 10:01] LABS: MANUAL DIFF FLAG NO
[2024-04-27 10:07] LABS: Basophils Percent Auto 0.5 % (0-2); Eosinophils Absolute Auto 0.2 X10*3/uL (0.0-0.4); Eosinophils Percent Auto 4.1 % (0-4); Hematocrit 39.2 % (37.0-47.0); Hemoglobin 13.2 g/dl (12.0-16.0); Lymphocytes Absolute Auto 1.6 X10*3/uL (1.2-4.9); Lymphocytes Percent Auto 37.3 % (20-40); Mean Corpuscular HGB Conc 33.7 g/dl (31.0-35.0); Mean Corpuscular Hemoglobin 31.5 pg (27.0-33.0); Mean Corpuscular Volume 93.6 fL (80.0-98.0); Mean Platelet Volume 10.2 fL (9.4-12.3); Monocytes Absolute Auto 0.4 X10*3/uL (0.1-1.2); Monocytes Percent Auto 9.6 % (2-11); Neutrophils Absolute Auto 2.1 x10*3/uL (2.0-8.3); Neutrophils Percent Auto 48.5 % (45-73); Platelet Count 231 X10*3/uL (160-400); Red Blood Count 4.19 X10*6/uL (4.20-5.50); Red Cell Distribution Width 11.5 % (11.0-16.0); White Blood Count 4.4 X10*3/uL (4.8-10.8)
[2024-04-27 10:40] LABS: Alanine Aminotransferase 20 U/L (0-31); Albumin Level 4.2 g/dL (3.5-5.0); Alkaline Phosphatase 55 U/L (39-117); Anion Gap 9 (12-20); Aspartate Amino Transferase 24 U/L (5-31); Bilirubin Total 0.5 mg/dL (0.0-1.0); Blood Urea Nitrogen 9 mg/dL (9-16); Calcium 9.3 mg/dL (8.4-10.2); Carbon Dioxide 27 mmol/L (22-29); Chloride 107 mmol/L (96-108); Cholesterol 170 mg/dL (<200); Estimated Glomerular Filt Rate > 60; Glucose Fasting 80 mg/dL (60-99); HDL Cholesterol 80 mg/dL (>40); Iron 72 mcg/dL (30-160); LDL Cholesterol Calculated 80 mg/dL (<100); Percent Iron Saturation 25 % (15-50); Potassium 4.2 mmol/L (3.3-5.1); Sodium 139 mmol/L (135-145); Total Iron Binding Capacity 288 mcg/dL (228-428); Triglycerides 52 mg/dL (<150); Unsaturated Iron Binding 216 ug/dL
[2024-04-27 10:58] LABS: Appearance Urine Clear; Color Urine Yellow; Glucose Urine UA Negative (Negative); Leukocyte Esterase Urine Small (1+) (Negative); Nitrite Urine Negative (Negative); UMIC TRIGGER UA YES; Urine Blood Negative (Negative); Urine Ketones Negative (Negative); Urine Protein Negative (Neg-Trace)
[2024-04-27 10:58] LABS: TSH reflex Free T4 1.66 uIU/mL (0.32-4.0)
[2024-04-27 11:07] LABS: Bacteria Urine 1+ (None Seen); Hyaline Casts Urine 0-2 /LPF (0-2); RBC Urine 0-2 /HPF (0-2)
== END 2024-04-27 08:06 | disposition home or self-care (01) ==
LOC: HO.HMGCLDS 08:05
PROVIDERS: PCP Internal Medicine; Visit Provider Internal Medicine
DX: Z00.00 Encounter for general adult medical examination without abnormal findings (principal); F32.81 Premenstrual dysphoric disorder; R00.0 Tachycardia, unspecified; Z79.899 Other long term (current) drug therapy
CPT/HCPCS: 36415; 80053; 80061; 81001; 83540; 84443; 85025; 96127

== ENCOUNTER 2024-10-22 08:53 | Outpatient (AMB) | payer OTHER, SELFPAY ==
--- OUTSIDE RECORDS SUMMARY | 2013-11-13 11:15 | XMS_ITS | Continuity of Care Document ---
Author Organization [facility] Address [address] [place] [address] Care Team Providers Care Chief Substation Operator Name Role Phone MD GRISEL, SIMI Unavailable Unavailable Advance Directives Directive Yes / No Effective Date File Name No Information Encounters Encounter Description Practice Location Reason(s) For Visit Diagnoses Date Provider Providers Copied on Encounter [facility], [address], [place], [place], [id number], [facility] No Information MD SIMI RECINOS. [address], [place], [place], [id number], . tel:[phone] Referring Provider: OKSANA Guthrie, [address], [place], [address]. tel:[phone] Family History Family Member Type Diagnosis Age At Onset No Information Payers Payer name Insurance type Covered republican ID Authoriza tion(s) [address] [id number] Social History Type Description Quantity Date Captured Comments Sex Female Smoking Status No Information Chief Complaint And Reason For Visit No Information History Of Present Illness Encounter Date Complaint History Of Prese nt Illness No Information Instructions Date Instruction Additional Infor mation No Information Assessments Type Assessment Date No Information
[2024-10-22 08:55] VITALS: BP 96/66; PULSE 110; RESP 20; TEMP 36.6; O2SAT 97; BMI 19.1
--- NOTE | 2024-10-22 08:55 | MHC.PC.OV ---
Vital Signs 10/22/24 08:55 Height 5 ft 3 in Weight 108 lb BMI 19.1 BP 96/66 Blood Pressure Location Lt brachial Position Sitting Respiration 20 Pulse 110 H Pulse Source Pulse Oximeter Temp 97.8 F Temp Source Oral Pulse Oximetry (%) 97 Oxygen Delivery Method Room Air Intake Visit Reasons: Med Management Intake Note: Pt is here today for a follow up visit. Allergies ibuprofen Allergy (Verified 10/22/24 08:56) pyffy eyes , lump in throat Medication List - Last Reconciled 10/22/24 by Carlene Johnson MD escitalopram oxalate (Lexapro) 5 mg (1/2 x 10 mg) PO DAILY tretinoin 0.1% 1 appl topical BEDTIME Tobacco use date assessed: 10/22/24 Dental Screening Dental Screen Date: 04/27/24 HPI Med Management HPI Details Patient presents for the follow-up. She reports not feeling well on the Lexapro taking it 2 weeks a month for premenstrual dysphoric disorder. Patient used to take Zoloft and was feeling better on it. She would like to switch. Patient also needs emotion support dog on campus in college. [facility] Medical History (Updated 10/22/24 @ 09:27 by Carlene Johnson MD) Tachycardia PMDD (premenstrual dysphoric disorder) Surgical History [place] teeth extracted Family History Father POTS (postural orthostatic tachycardia syndrome) Sleep apnea Mother Skin cancer Social History Household Members Other:: lives with mother (radiologist in , lived in [place] Housing: Other Patient Tobacco Use Status: Never used Tobacco e-Cigarette/Vaping Use: Never Used service: No Current occupational status: student Cognitive needs: No Hearing needs: No Vision needs: No Questionnaire Thrive Questionnaire Date Thrive assessed: 10/22/24 I am a: Patient What is your living situation today?: I have a steady place to live Within the past 12 months, did the food you bought not last and you didn't have the money to get more?: Never true Within the past 12 months, did you worry whether your food would run out before you got money to buy more?: Never true Do you have trouble paying for medicines?: No Do you have trouble getting transportation to medical appointments?: Yes Do you have trouble paying your heating and electricity bill?: No Do you have trouble taking care of your child, family member or friend?: No Do you have trouble with day-to-day activities such as bathing, preparing meals, shopping, managing finances, etc.?: No Are you currently unemployed and looking for a job?: No Are you interested in more education?: No Please select the resources that you would like help with: None Currently or been in a relationship where the following occur: No concerns reported THRIVE Score: 1 Review of Systems Const All systems reviewed & are unremarkable except as noted in HPI and below ENT Reports no additional complaints Card Reports no additional complaints Resp Reports no additional complaints GI Reports no additional complaints Physical exam (Primary Care) Vital Signs: Last Vital Signs Temp 97.8 F 10/22/24 08:55 Pulse 110 H 10/22/24 08:55 Resp 20 10/22/24 08:55 BP 96/66 10/22/24 08:55 Pulse Ox 97 10/22/24 08:55 Oxygen Delivery Method Room Air 10/22/24 08:55 BMI result Body Mass Index 19.1 Tobacco/Smoking Status: Tobacco use Status Tobacco use date assessed 10/22/24 10/22/24 09:00 Patient Tobacco Use Status Never used Tobacco 10/22/24 09:00 e-Cigarette/Vaping Use Never Used 10/22/24 09:00 Thrive Assessment: Date of Thrive Assessment Date Thrive assessed 10/22/24 10/22/24 09:00 Currently or been in a relationship where the following occur: No concerns reported Const General: no acute distress HENMT Head: Yes normal to inspection Face and sinus: Yes normal facial exam Eyes General: appearance normal, both eyes and all related structures Neck Neck: Yes supple Resp Effort & Inspection: normal respiratory effort Auscultation: clear to auscultation bilaterally Cardio Rhythm: regular rhythm Heart sounds: S1 normal heart sound present and S2 normal heart sound present Coding Level of Care Code Est Pt Level 3 (04644) Diagnoses PMDD (premenstrual dysphoric disorder) F32.81 Assessment & Plan Assessment & Plan (1) PMDD (premenstrual dysphoric disorder): Code(s): F32.81 - Premenstrual dysphoric disorder Category: Medical Plan: Patient will start 12.5 mg of Zoloft 2 days out of the month during the 2nd phase of the cycle. After 2 months she may increase the dose to 25 mg. Follow-up in 3 months, for chronic anxiety patient was advised to get established with a counselor Medications: New sertraline (Zoloft) 25 mg PO DAILY 60 tabs 2RF sertraline (Zoloft) 25 mg PO DAILY 60 tabs 2RF Discontinued escitalopram oxalate (Lexapro) Discontinued Reason: Doctor's Order 5 mg (1/2 x 10 mg) PO DAILY 90 tabs 0RF
--- OUTSIDE RECORDS SUMMARY | 2024-10-22 09:59 | XMS_ITS | Clinical Summary ---
Author Organization [facility] Address [address] [place] [address] [place] [id number] Phone Care Team Providers Care Solderer Electronic Name Role Phone Carlene Johnson MD Primary Care Provider [phone] Encounters Date Type Department Care Team Description 09/20/2024 Telephone [facility] [address] [facility], [address] [place] [address] Jennifer Pantoja from Last 3 Months Social History Tobacco Use Types Packs/Day Years Used Date Smoking Tobacco: Never Assessed Comments Unknown Sex and Gender Information Value Date Recorded Sex Assigned at Not on file Legal Sex Female 4:20 PM EDT Gender Identity Not on file Sexual Orientation Not on file Plan of Treatment Not on file Medical Devices Not on file Insurance [facility] [employer] HEALTH PLAN [id number] [place] [address] [id number] [place] [address] HEALTH PLAN [facility] PLAN Care Teams Solderer Electronic Relationship Specialty Start Date End Date Carlene Johnson MD [address] [place] [address] PCP - General Internal Medicine 09/14/24 Additional Source Comments The information contained in this document represents components of the legal health record. It is not the complete legal health record.[facility]
== END 2024-10-22 09:37 | disposition home or self-care (01) ==
LOC: HO.HMCC 08:54
PROVIDERS: Visit Provider Internal Medicine
DX: F32.81 Premenstrual dysphoric disorder (principal)

== ENCOUNTER → 2024-10-22 08:53 | Outpatient (BNVA) | payer OTHER, SELFPAY | PROVIDERS: Visit Provider Internal Medicine | DX: F32.81 Premenstrual dysphoric disorder (principal); Z79.899 Other long term (current) drug therapy | CPT/HCPCS: 99212 ==

== ENCOUNTER 2025-01-21 09:07 | Outpatient (AMB) | payer OTHER, SELFPAY ==
[2025-01-21 09:13] VITALS: BP 100/64; PULSE 105; RESP 18; O2SAT 97; BMI 18.6
--- NOTE | 2025-01-21 09:13 | A.OFFPC_ITS ---
Vital Signs 01/21/25 09:13 Height 5 ft 3 in Weight 105 lb BMI 18.6 BP 100/64 Blood Pressure Location Lt brachial Position Sitting Respiration 18 Pulse 105 H Pulse Source Pulse Oximeter Pulse Oximetry (%) 97 Oxygen Delivery Method Room Air Intake Visit Reasons: 3 mo follow up Intake Note: Pt is here today for 3 months follow up visit. Allergies ibuprofen Allergy (Verified 01/21/25 09:16) pyffy eyes , lump in throat Medication List - Last Reconciled 01/21/25 by Carlene Johnson MD sertraline (Zoloft) 25 mg PO DAILY tretinoin 0.1% 1 appl topical BEDTIME Tobacco use date assessed: 10/22/24 Dental Screening Dental Screen Date: 04/27/24 HPI 3 mo follow up HPI Details Pt presents for f/u PMDD better on Zoloft but pt reports decrease appetite. [facility] Medical History (Updated 01/21/25 @ 09:56 by Carlene Johnson MD) Normal pelvic exam Tachycardia PMDD (premenstrual dysphoric disorder) Surgical History [place] teeth extracted Family History Father POTS (postural orthostatic tachycardia syndrome) Sleep apnea Mother Skin cancer Social History Household Members Other:: lives with mother (radiologist in , lived in [place] Housing: Other Patient Tobacco Use Status: Never used Tobacco e-Cigarette/Vaping Use: Never Used service: No Current occupational status: student Cognitive needs: No Hearing needs: No Vision needs: No Questionnaire Thrive Questionnaire Date Thrive assessed: 04/27/24 I am a: Patient What is your living situation today?: I have a steady place to live Within the past 12 months, did the food you bought not last and you didn't have the money to get more?: Never true Within the past 12 months, did you worry whether your food would run out before you got money to buy more?: Never true Do you have trouble paying for medicines?: No Do you have trouble getting transportation to medical appointments?: Yes Do you have trouble paying your heating and electricity bill?: No Do you have trouble taking care of your child, family member or friend?: No Do you have trouble with day-to-day activities such as bathing, preparing meals, shopping, managing finances, etc.?: No Are you currently unemployed and looking for a job?: No Are you interested in more education?: No Please select the resources that you would like help with: None Currently or been in a relationship where the following occur: No concerns reported THRIVE Score: 1 Review of Systems Const All systems reviewed & are unremarkable except as noted in HPI and below Eyes Reports no additional complaints ENT Reports no additional complaints Card Reports no additional complaints Resp Reports no additional complaints GI Reports no additional complaints Reports no additional complaints Physical exam (Primary Care) Vital Signs: Last Vital Signs Pulse 105 H 01/21/25 09:13 Resp 18 01/21/25 09:13 BP 100/64 01/21/25 09:13 Pulse Ox 97 01/21/25 09:13 Oxygen Delivery Method Room Air 01/21/25 09:13 BMI result Body Mass Index 18.6 Tobacco/Smoking Status: Tobacco use Status Tobacco use date assessed 10/22/24 01/21/25 09:20 Patient Tobacco Use Status Never used Tobacco 01/21/25 09:20 e-Cigarette/Vaping Use Never Used 01/21/25 09:20 Thrive Assessment: Date of Thrive Assessment Date Thrive assessed 04/27/24 01/21/25 09:20 Currently or been in a relationship where the following occur: No concerns reported Const General: no acute distress HENMT Head: Yes normal to inspection General nose exam: Normal external nose present Face and sinus: Yes normal facial exam Eyes General: appearance normal, both eyes and all related structures Neck Neck: Yes no lymphadenopathy and Yes supple Resp Effort & Inspection: normal respiratory effort Auscultation: clear to auscultation bilaterally Cardio Rhythm: regular rhythm Heart sounds: S1 normal heart sound present and S2 normal heart sound present Coding Level of Care Code Est Pt Level 3 (44351) Diagnoses PMDD (premenstrual dysphoric disorder) F32.81 Assessment & Plan Assessment & Plan (1) PMDD (premenstrual dysphoric disorder): Code(s): F32.81 - Premenstrual dysphoric disorder Category: Medical Plan: Continue Zoloft 2 weeks before menses, well-balanced diet adding protein to each meal discussed with the patient she will monitor her weight Medications: Refilled tretinoin 0.1% 1 appl topical BEDTIME 45 grams 1RF
== END 2025-01-21 09:57 | disposition home or self-care (01) ==
LOC: HO.HMCC 09:07
PROVIDERS: Visit Provider Internal Medicine
DX: F32.81 Premenstrual dysphoric disorder (principal)

== ENCOUNTER → 2025-01-21 09:07 | Outpatient (BNVA) | payer OTHER, SELFPAY | PROVIDERS: Visit Provider Internal Medicine | DX: F32.81 Premenstrual dysphoric disorder (principal); Z79.899 Other long term (current) drug therapy | CPT/HCPCS: 99212 ==